=== PATIENT | female | born 1985 | race Caucasian/White ===

== ENCOUNTER → 2016-11-17 18:16 | Outpatient (CLI) | payer MEDICAID ==
[2014-10-24 14:35] VITALS: BMI 35.5
[~2016-11-17 18:16] MED LIST: ASCORBIC ACID500 MG PO; IBUPROFEN800 MG PO; MULTIPLE VITAMI1 TA1 PO; PERCOCET 10/3251 TA1 PO; ZOLOFT100 MG PO
== END | disposition home or self-care (01) ==
LOC: D.MAMMO 11-12 09:30 → D.US 11-12 10:30 → D.MAMMO 10:00
DX: N64.4 Mastodynia (principal)

== ENCOUNTER 2019-08-20 04:37 | Emergency (ER) | payer MEDICAID ==
[~2019-08-20] VITALS: Ht 160 cm; Wt 93.2 kg
[2019-08-20 04:42] VITALS: Ht 160 cm; Wt 93.2 kg
[2019-08-20] MEDS ORDERED: HYDROCODON-ACE1 EAC7 PO (05:27)
[2019-08-20 05:41] VITALS: BP 138/85
== END 2019-08-20 05:42 | disposition home or self-care (01) ==
LOC: D.ER 04:37
DX: S86.111A Strain of other muscle(s) and tendon(s) of posterior muscle group at lower leg level, right leg, initial encounter (principal); Y93.A1 Activity, exercise machines primarily for cardiorespiratory conditioning